=== PATIENT | male | born 1960 | race Two or more races ===

== ENCOUNTER → 2021-02-10 | Outpatient (CLI) | payer OTHER ==
--- NOTE | 2021-02-10 12:17 | RAD ---
Examination: CT chest without contrast HISTORY: History of lung nodule COMPARISON: None available TECHNIQUE: Axial CT images of chest were performed without contrast. Coronal and sagittal reformats a re performed Exposure: One or more of the following individualized dose reduction techniques were utilized for thi s examination: 1. Automated exposure control 2. Adjustment of the mA and/or kV according to patient size 3. Use of iterative reconstruction technique. FINDINGS: The central airways are patent. Coronary artery calcifications identified. The heart size grossly lyndsay ears unremarkable. Examination limited due to lack of IV contrast. Mild bilateral lung emphysematous changes. There is a 8 mm nodule identified in the left lower lobe of lung abutting the pleura mediall y. The visualized noncontrasted liver demonstrates 9 mm cyst or cystic structure, difficult to charac terize.The spleen, adrenals grossly appears unremarkable. Mild degenerative thoracic spine. IMPRESSION: 1. 8 mm nodule identified in the left lower lobe of lung abutting the pleura medially. Per Fleischne r Society guidelines for incidentally found solid nodule measuring 6-8 mm, initial CT follow-up is re commended in 6-12 months. Additional follow-up can be considered in 18-24 month based on risk factors . 2. Coronary artery calcifications. 3. 9 mm cyst or cystic structure identified in the visualized noncontrasted liver, difficult to maria fernanda acterize. Electronically signed by: Darron Garrett MD (02/10/2021 12:14 PM) [id number]
== END ==
LOC: CT 11:40
PROVIDERS: ATTEND Nurse Practitioner Family
DX: R91.8 Other nonspecific abnormal finding of lung field (principal); I25.10 Atherosclerotic heart disease of native coronary artery without angina pectoris
CPT/HCPCS: 71250

== ENCOUNTER → 2021-08-25 | Outpatient (CLI) | payer OTHER ==
--- NOTE | 2021-08-25 15:34 | RAD ---
CT chest without contrast 08/25/2021 Indication: [Follow-up, pulmonary nodule] Comparison study: [CT of the chest without contrast February 10, 2021] Technique: Multidetector CT imaging of the chest was performed without contrast Findings: Redemonstration of an 8 mm nodule in the medial subpleural left lower lobe. On today's exam a punctat e calcification can be seen within the lateral. There is no pneumothorax, pleural effusion, or focal infiltrate identified mild scattered areas of subpleural atelectasis and discoid atelectasis are seen . No acute appearing infiltrates are identified. No pneumothorax or pleural effusion is seen. Probabl e changes of COPD noted. Limited visualization of the upper abdomen demonstrates no acute abnormality . Heart size is normal. Coronary calcification noted. Scattered small mediastinal lymph nodes are see n, similar to comparison study. Some of these lymph nodes, such as those in the subcarinal region and areas of calcification suggesting prior granulomatous disease. No acute osseous abnormality is identified. IMPRESSION: 1. Stable 8 mm nodule in the medial subpleural left lower lobe punctate area of calcification. Recomm end CT imaging to confirm two-year stability. 2. Multivessel coronary artery calcification. Consider a quantitative calcium score exam to assess ri sk as clinically indicated. CT DOSING PQRS STATEMENT: One or more of the following individualized dose reduction techniques were utilized for this examinat ion: 1. Automated exposure control 2. Adjustment of the mA and/or kV according to patient size 3. Use of iterative reconstruction technique Electronically signed by: Tristian Tavares MD (08/25/2021 3:32 PM) [id number]
== END ==
LOC: CT 14:52
PROVIDERS: ATTEND Nurse Practitioner Family
DX: R91.1 Solitary pulmonary nodule (principal); I25.10 Atherosclerotic heart disease of native coronary artery without angina pectoris
CPT/HCPCS: 71250

== ENCOUNTER → 2021-09-26 | Outpatient (CLI) | payer OTHER ==
--- NOTE | 2021-09-26 17:26 | KCIC ---
EXAM: CT coronary artery calcium screening; radiologist over read. HISTORY: Coronary artery calcium screening. TECHNIQUE: Computed tomographic images of the chest were obtained without contrast. Multiplanar refor matting was performed. *One or more of the following individualized dose reduction techniques were utilized for this examina tion: 1. Automated exposure control. 2. Adjustment of the mA and/or kV according to patient size. 3. Use of iterative reconstruction technique. COMPARISON: 08/25/2021 and 01/24/2021. FINDINGS: The heart is normal in size. There is coronary artery calcification. There is a prominent r ight paratracheal lymph node measuring 2.2 cm. There is no pneumothorax or pleural effusion. There is posterior dependent atelectasis. There is a calcified granuloma within the right lower lobe. There i s an 8 mm nodule abutting the pleura of the medial left lower lobe. Coronary artery calcium score: Left main artery - 0 Left anterior descending - 525.4 Left circumflex - 68.7 Right coronary artery - 6.7 TOTAL = 600.8 IMPRESSION: 1. Coronary artery calcification. The coronary artery calcium score is 600.8. There is a large amount of plaque and high cardiac risk. 2. 8 mm left lower lobe pulmonary nodule, stable compared to studies dating to 02/10/2021. Continued f ollow-up with a CT in 6 months is recommended to confirm longer-term stability. 3. Stable prominent right paratracheal lymph node. This is nonspecific. Attention at the time of foll ow-up is recommended. Electronically signed by: Hanna Junior MD (09/26/2021 5:23 PM) [id number]
== END ==
LOC: KCIC CT 13:44
PROVIDERS: ATTEND Nurse Practitioner Family
DX: I25.10 Atherosclerotic heart disease of native coronary artery without angina pectoris (principal); R91.1 Solitary pulmonary nodule; J84.10 Pulmonary fibrosis, unspecified
CPT/HCPCS: 75571